=== PATIENT | female | born 1990 | race Two or more races ===

== ENCOUNTER 2021-02-27 14:21 | Emergency (ER) | payer OTHER, SELFPAY ==
[2021-02-27 14:49] VITALS: BP 191/95; PULSE 110; RESP 18; TEMP 36.2; O2SAT 100; BMI 28.3
[2021-02-27 17:00] LABS: MANUAL DIFF FLAG NO
[2021-02-27 17:01] LABS: Basophils Percent Auto 0.1 % (0-2); Eosinophils Absolute Auto 0.2 X10*3/uL (0.0-0.4); Hematocrit 32.3 % (37-47); Hemoglobin 9.7 g/dl (12.0-16.0); Imm Gran Abs Auto 0.03 X10*3/uL (0.00-0.03); Imm Gran Pct Auto 0.3 % (0.0-0.4); Lymphocytes Absolute Auto 1.4 X10*3/uL (1.2-4.9); Lymphocytes Percent Auto 13.8 % (20-40); Mean Corpuscular Hemoglobin 22.1 pg (27.0-33.0); Mean Corpuscular Volume 73.6 fL (80-98); Mean Platelet Volume 11.7 fL (9.4-12.3); Monocytes Absolute Auto 0.4 X10*3/uL (0.1-1.2); Neutrophils Absolute Auto 7.9 X10*3/uL (2.0-8.3); Neutrophils Percent Auto 79.8 % (45-73); Platelet Count 211 X10*3/uL (160-400); Red Blood Count 4.39 X10*6/uL (4.20-5.50); Red Cell Distribution Width 13.8 % (11.0-16.0); White Blood Count 9.9 X10*3/uL (4.8-10.8)
[2021-02-27] MEDS: 0.9 % Sodium Chloride 1,000 ML 999 ML IVCONT (17:03)
[2021-02-27] MEDS: Famotidine/PF 20 MG/2 ML VIAL IVPUSH (17:04)
[2021-02-27] MEDS: ondansetron HCL 4 MG/2 ML VIAL IVPUSH (17:04)
--- NOTE | 2021-02-27 17:10 | ED.NAVMDI ---
HPI - Nausea/Vomiting/Diarrhea General Chief complaint: Nausea/Vomiting/Diarrhea Stated complaint: SOB Time Seen by Provider: 02/27/21 16:33 Source: patient Mode of arrival: ambulatory Limitations: no limitations History of Present Illness HPI Narrative: 30-year-old female came in for evaluation of nausea and vomiting with upper abdominal pain. Patient's symptoms started since last night after she ate rice with pork ribs, patient had multiple nonbloody vomiting associated with upper/epigastric abdominal pain, pain is moderate 5/10 feels like acid burn sensation to the epigastric area, associated with nausea vomiting, and 1 time nonbloody watery diarrhea. No fever, no chills, no lower abdominal pain or tenderness. Related Data Home Medications Medication Instructions Recorded Confirmed albuterol sulfate 90 mcg/actuation 2 puff INHALATION Q6H PRN 12/12/20 12/12/20 aerosol inhaler medroxyprogesterone 150 mg/mL 150 mg IM [id number] 12/12/20 12/12/20 intramuscular suspension Previous Rx's Medication Instructions Recorded lisinopril 5 mg tablet 5 mg PO DAILY #30 tab 12/12/20 omeprazole magnesium [Prilosec OTC] 20 mg PO BID #30 tab 02/27/21 Allergies Allergy/AdvReac Type Severity Reaction Status Date / Time No Known Allergies Allergy Unknown Unverified 05/12/20 16:03 [No Known Allergies*] Review of Systems Review of Systems: All other systems are reviewed and are negative Constitutional: Reports as per HPI and Reports no additional constitutional complaints Eyes: Reports as per HPI and Reports no additional eye complaints Reports system reviewed and no additional complaints, except as documented Cardiovascular: Reports as per HPI and Reports no additional cardiovascular complaints Respiratory: Reports as per HPI and Reports no additional respiratory complaints Gastrointestinal: Reports as per HPI and Reports no additional gastrointestinal complaints Genitourinary: Reports no additional female genitourinary complaints Musculoskeletal: Reports no additional musculoskeletal complaints Skin/Breast: Reports system reviewed and no additional complaints, except as docu Psychiatric: Reports no additional psychiatric complaints Endocrine: Reports no additional endocrine complaints Hematologic/Lymphatic: Reports no additional hematologic/lymphatic complaints Allergic/Immunologic: Reports no additional allergic/immunologic complaints Reports system reviewed and no additional complaints, except as documented and Reports Abnormal speech present PMFSH Past Medical History Medical History Asthma COVID-19 virus infection Fibroid Preeclampsia Surgical History History of section History of tubal ligation Social History Social History Alcohol intake: never Advance Directives: No Advance Directives Information Provided: Yes Patient : No Physical Exam Vital Signs: Vital Signs: Last Vital Signs Temp 98.4 F 02/27/21 18:26 Pulse 93 02/27/21 18:26 Resp 18 02/27/21 18:26 BP 169/90 H 02/27/21 18: Pulse Ox 100 02/27/21 18:26 Body Mass Index 28.3 vital signs have been reviewed as appeared to be correct. Blood pressure elevated. Heart rate Elevated. Respiration rate normal. Temperature normal. Oxygen saturation normal. Appearance: Alert. Oriented X3. No acute distress. Head: Normal external exam. Normocephalic. Atraumatic. No Nolasco signs noted. No raccoon eyes noted Eyes: PERRLA. EOMI. Conjunctiva and sclera normal. Eyelids normal. ENT: TM's Normal. Pharynx normal. Uvula midline. Moist mucous membranes. No trismus noted. No drooling noted. No muffled voice noted. Neck: Normal inspection. Neck supple. FROM. No adenopathy. Thyroid Normal. No meningeal signs. No neck mass noted. CVS: Normal heart rate and rhythm. Heart sound normal. No murmurs noted. Pulses normal throughout. Respiratory: No respiratory distress. Painless inspiration. Breath sounds normal. No wheezes/rales/rhonchi noted. Chest nontender. No accessory muscle usage noted or decreased air movement noted. Abdomen: Soft, mild epigastric tenderness, no rebound, no guarding.. Bowel sounds normal in all 4 quadrants. No distention noted. No organomegaly noted. No visible injury noted. Back: No CVA tenderness. Full range of motion noted. Skin: Skin warm and dry. Normal skin color. Normal skin turgor. No rashes/lesions/lacerations noted. Extremities: No lower extremity edema. Extremities exhibit normal range of motion. Extremities nontender. Neuro: Oriented X 3. No motor deficit. No sensory deficit. Reflexes normal. Course Course Course Narrative: assessment and plan. patient emergency department received IV fluid/ Pepcid/Zofran /Maalox patient feels better, able to tolerate p.o. intake, repeat abdominal exam showed improvement of the epigastric tenderness, no rebound, no guarding. MDM - Nausea/Vomiting/Diarrhea Lab Data Attestation: I reviewed the patient's lab results. Result diagrams: 02/27/21 16:56 02/27/21 16:56 Labs: Lab Results 02/27/21 02/27/21 02/27/21 Range/Units 16:56 16:56 18:21 WBC 9.9 (4.8-10.8) X10*3/uL RBC 4.39 (4.20-5.50) X10*6/uL Hgb 9.7 L (12.0-16.0) g/dl Hct 32.3 L (37-47) % MCV 73.6 L (80-98) fL MCH 22.1 L (27.0-33.0) pg MCHC 30.0 L (31.0-35.0) g/dl RDW 13.8 (11.0-16.0) % Plt Count 211 (160-400) X10*3/uL MPV 11.7 (9.4-12.3) fL Immature Gran % (Auto) 0.3 (0.0-0.4) % Neut % (Auto) 79.8 H (45-73) % Lymph % (Auto) 13.8 L (20-40) % [place] % (Auto) 4.0 (2-11) % Eos % (Auto) 2.0 (0-4) % Baso % (Auto) 0.1 (0-2) % Lymph # (Auto) 1.4 (1.2-4.9) X10*3/uL [place] # (Auto) 0.4 (0.1-1.2) X10*3/uL Eos # (Auto) 0.2 (0.0-0.4) X10*3/uL Baso # (Auto) 0.0 (0.0-0.2) X10*3/uL Abs Immat Gran (auto) 0.03 (0.00-0.03) X10*3/uL Absolute Neuts (auto) 7.9 (2.0-8.3) X10*3/uL Absolute Nucleated RBC 0.000 (0.0-0.012) X10*3/uL Nucleated RBC % (auto) 0.0 (0.0-0.2) /100WBC Sodium 137 (135-145) mmol/L Potassium 3.9 (3.3-5.1) mmol/L Chloride 107 (96-108) mmol/L Carbon Dioxide 18 L (22-29) mmol/L Anion Gap 16 (12-20) BUN 8 L (9-16) mg/dL Creatinine 0.75 (0.5-1.4) mg/dL Estim Creat Clear Calc 88.0 Estimated GFR > 60 Random Glucose 95 (60-115) mg/dL Calcium 9.1 (8.4-10.2) mg/dL Total Bilirubin 0.8 (0.0-1.0) mg/dL Direct Bilirubin 0.3 (0.0-0.5) mg/dL AST 16 (5-31) U/L ALT 17 (0-31) U/L Alkaline Phosphatase 73 (39-117) U/L Total Protein 7.3 (6.5-8.0) g/dL Albumin 4.1 (3.5-5.0) g/dL Lipase 68 (8-78) U/L Urine Color YELLOW Urine Appearance CLEAR Urine pH 6.0 (5.0-8.0) Ur Specific [place] 1.025 (1.005-1.025) Urine Protein NEG (NEG-TRACE) MG/DL Urine Glucose (UA) NEG (NEG) MG/DL Urine Ketones 40 (NEG) MG/DL Urine Blood 3+ H (NEG) Urine Nitrite NEG (NEG) Ur Leukocyte Esterase NEG (NEG) Urine RBC 15-29 H (0) /HPF Urine WBC 0-2 (0-4) /HPF Ur Squamous Epith Cells TRACE /LPF Urine Bacteria NONE /LPF Urine Mucus 1+ /LPF Urine Test (NEGATIVE) 02/27/21 Range/Units 18:21 WBC (4.8-10.8) X10*3/uL RBC (4.20-5.50) X10*6/uL Hgb (12.0-16.0) g/dl Hct (37-47) % MCV (80-98) fL MCH (27.0-33.0) pg MCHC (31.0-35.0) g/dl RDW (11.0-16.0) % Plt Count (160-400) X10*3/uL MPV (9.4-12.3) fL Immature Gran % (Auto) (0.0-0.4) % Neut % (Auto) (45-73) % Lymph % (Auto) (20-40) % [place] % (Auto) (2-11) % Eos % (Auto) (0-4) % Baso % (Auto) (0-2) % Lymph # (Auto) (1.2-4.9) X10*3/uL [place] # (Auto) (0.1-1.2) X10*3/uL Eos # (Auto) (0.0-0.4) X10*3/uL Baso # (Auto) (0.0-0.2) X10*3/uL Abs Immat Gran (auto) (0.00-0.03) X10*3/uL Absolute Neuts (auto) (2.0-8.3) X10*3/uL Absolute Nucleated RBC (0.0-0.012) X10*3/uL Nucleated RBC % (auto) (0.0-0.2) /100WBC Sodium (135-145) mmol/L Potassium (3.3-5.1) mmol/L Chloride (96-108) mmol/L Carbon Dioxide (22-29) mmol/L Anion Gap (12-20) BUN (9-16) mg/dL Creatinine (0.5-1.4) mg/dL Estim Creat Clear Calc Estimated GFR Random Glucose (60-115) mg/dL Calcium (8.4-10.2) mg/dL Total Bilirubin (0.0-1.0) mg/dL Direct Bilirubin (0.0-0.5) mg/dL AST (5-31) U/L ALT (0-31) U/L Alkaline Phosphatase (39-117) U/L Total Protein (6.5-8.0) g/dL Albumin (3.5-5.0) g/dL Lipase (8-78) U/L Urine Color Urine Appearance Urine pH (5.0-8.0) Ur Specific [place] (1.005-1.025) Urine Protein (NEG-TRACE) MG/DL Urine Glucose (UA) (NEG) MG/DL Urine Ketones (NEG) MG/DL Urine Blood (NEG) Urine Nitrite (NEG) Ur Leukocyte Esterase (NEG) Urine RBC (0) /HPF Urine WBC (0-4) /HPF Ur Squamous Epith Cells /LPF Urine Bacteria /LPF Urine Mucus /LPF Urine Test NEGATIVE (NEGATIVE) Discharge Plan Discharge Clinical Impression: Gastritis Qualifiers: Gastritis type: alcoholic Chronicity: acute Gastritis bleeding: without bleeding Qualified Code(s): K29.20 - Alcoholic gastritis without bleeding Patient Disposition: Home, Self-Care Instructions: Gastritis (ED) Prescriptions: New omeprazole magnesium [Prilosec OTC] 20 mg tablet,delayed release (DR/EC) 20 mg PO BID Qty: 30 RF: 0 No Action medroxyprogesterone [Depo-Provera] 150 mg/mL suspension 150 mg IM [id number] RF: 0 albuterol sulfate [ProAir HFA] 90 mcg/actuation HFA aerosol inhaler 2 puff inhalation Q6H PRNRF: 0 lisinopril 5 mg tablet 5 mg PO DAILY Qty: 30 RF: 3 Referrals: Po,Abigail Calvo MD [Primary Care Provider] - 2 days
[2021-02-27 17:22] LABS: Alanine Aminotransferase 17 U/L (0-31); Albumin Level 4.1 g/dL (3.5-5.0); Alkaline Phosphatase 73 U/L (39-117); Anion Gap 16 (12-20); Aspartate Amino Transferase 16 U/L (5-31); Bilirubin Direct 0.3 mg/dL (0.0-0.5); Bilirubin Total 0.8 mg/dL (0.0-1.0); Blood Urea Nitrogen 8 mg/dL (9-16); Calcium 9.1 mg/dL (8.4-10.2); Carbon Dioxide 18 mmol/L (22-29); Chloride 107 mmol/L (96-108); Estimated Glomerular Filt Rate > 60; Glucose Random 95 mg/dL (60-115); Lipase 68 U/L (8-78); Potassium 3.9 mmol/L (3.3-5.1); Sodium 137 mmol/L (135-145); Total Protein 7.3 g/dL (6.5-8.0)
[2021-02-27 18:26] VITALS: BP 169/90; PULSE 93; RESP 18; TEMP 36.9; O2SAT 100
[2021-02-27 18:33] LABS: Glucose Urine UA NEG (NEG); Leukocyte Esterase Urine NEG (NEG); Nitrite Urine NEG (NEG); Specific Gravity - Urine 1.025 (1.005-1.025); Urine Blood 3+ (NEG); Urine Ketones 40 MG/DL (NEG); Urine Protein NEG (NEG-TRACE)
[2021-02-27 18:35] LABS: UPreg QC Valid YES; Urine Pregnancy NEGATIVE (NEGATIVE)
[2021-02-27 18:36] LABS: Appearance Urine CLEAR; Color Urine YELLOW
[2021-02-27 18:43] LABS: Mucus Urine 1+ /LPF; Squamous Epithelial Cell Urine TRACE /LPF; WBC Urine 0-2 /HPF (0-4)
== END 2021-02-27 19:35 | disposition home or self-care (01) ==
PROVIDERS: Emergency Provider Emergency Medicine; PCP Internal Medicine
DX: K29.00 Acute gastritis without bleeding (principal); I10 Essential (primary) hypertension; E66.3 Overweight; J45.909 Unspecified asthma, uncomplicated; Z79.899 Other long term (current) drug therapy
CPT/HCPCS: 36415; 80048; 80076; 81001; 81025; 83690; 85025; 96361; 96374; 96375; 99283; 99284; J2405

== ENCOUNTER → 2021-11-14 07:41 | Outpatient (REF) | payer OTHER, SELFPAY ==
[2021-11-14 08:48] LABS: Hematocrit 40.6 % (37.0-47.0); Hemoglobin 13.1 g/dl (12.0-16.0); Mean Corpuscular HGB Conc 32.3 g/dl (31.0-35.0); Mean Corpuscular Hemoglobin 26.8 pg (27.0-33.0); Mean Corpuscular Volume 83.2 fL (80.0-98.0); Mean Platelet Volume 12.2 fL (9.4-12.3); Platelet Count 230 X10*3/uL (160-400); Red Blood Count 4.88 X10*6/uL (4.20-5.50); Red Cell Distribution Width 12.6 % (11.0-16.0); White Blood Count 6.3 X10*3/uL (4.8-10.8)
[2021-11-14 08:49] LABS: Immature Retic Fraction 5.6 % (3.0-15.9); Retic HGB Equivalent 32.3 pg (30.0-35.0); Reticulocyte Percent 1.3 % (0.5-1.8); Reticulocytes Absolute 0.064 X10*6/uL (0.026-0.095)
[2021-11-14 09:30] LABS: Alanine Aminotransferase 24 U/L (0-31); Albumin Level 4.2 g/dL (3.5-5.0); Alkaline Phosphatase 77 U/L (39-117); Anion Gap 11 (12-20); Aspartate Amino Transferase 15 U/L (5-31); Bilirubin Total 0.7 mg/dL (0.0-1.0); Blood Urea Nitrogen 8 mg/dL (9-16); Calcium 9.4 mg/dL (8.4-10.2); Carbon Dioxide 26 mmol/L (22-29); Chloride 104 mmol/L (96-108); Estimated Glomerular Filt Rate > 60; Glucose Random 88 mg/dL (60-115); Iron 67 mcg/dL (30-160); Potassium 3.9 mmol/L (3.3-5.1); Sodium 137 mmol/L (135-145); Total Protein 7.6 g/dL (6.5-8.0)
--- NOTE | 2021-11-14 09:34 | ECG_ITS ---
Test Reason : I10 Blood Pressure : / mmHG Vent. Rate : 077 BPM Atrial Rate : 077 BPM P-R Int : 136 ms QRS Dur : 078 ms QT Int : 348 ms P-R-T Axes : 025 006 022 degrees QTc Int : 393 ms Normal sinus rhythm with sinus arrhythmia Minimal voltage criteria for LVH, may be normal variant ( R in aVL ) Borderline ECG When compared to the previous EKG of No significant changes seen Referred By: Raulito Goins Electronically Signed By:Ildefonso Quintero
[2021-11-14 09:54] LABS: Percent Iron Saturation 17 % (15-50); Total Iron Binding Capacity 386 mcg/dL (228-428); Unsaturated Iron Binding 319 ug/dL
[2021-11-14 09:57] LABS: Folate 14.9 ng/mL (> or = 4.0); Vitamin B12 555 pg/mL (200-900)
[2021-11-14 09:58] LABS: Ferritin 30 ng/mL (10-122); Free T4 (Free Thyroxine) 1.15 ng/dL (0.71-1.85); Thyroid Stimulating Hormone 0.82 uIU/mL (0.32-4.0)
[2021-11-16 14:26] LABS: Vitamin D 25-OH Total 17.2 ng/mL (>30)
== END ==
LOC: HO.CARD 07:41
PROVIDERS: PCP Internal Medicine; Visit Provider Nurse Practitioner Family
DX: Z00.00 Encounter for general adult medical examination without abnormal findings (principal); I10 Essential (primary) hypertension; D64.9 Anemia, unspecified
CPT/HCPCS: 36415; 80053; 82306; 82607; 82728; 82746; 83540; 84439; 84443; 85027; 85045; 93005

== ENCOUNTER 2024-01-23 09:12 | Outpatient (AMB) | payer OTHER, SELFPAY ==
--- NOTE | 2024-01-23 09:12 | MHC.PC.OV ---
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 Allergies No Known Allergies [No Known Allergies*] Allergy (Unknown, Verified 01/23/24 09:13) Medication List - Last Reconciled 01/23/24 by Abigail Nicholson MD albuterol sulfate 90 mcg/actuation (Ventolin HFA) 2 puffs inhalation Q6H PRN lisinopril 10 mg PO DAILY Tobacco use date assessed: 01/23/24 Dental Screening Dental Screen Date: 01/23/24 Did you have a dental visit in the last 12 months?: Yes Did you have a dental problem in the last 6 months where you did not have access to dental care?: No Was dental information given to patient?: Patient has dentist HPI Annual HPI Details 33-year-old overweight female with history of hypertension asthma coming in for physical exam last seen 1 year ago. On lisinopril 10 mg once a day patient has been checking the blood pressure at home and has been hi also. As for the asthma uses the albuterol twice a day and presently does not have any controller inhaler. [facility] Medical History (Updated 01/23/24 @ 09:19 by Abigail Nicholson MD) Physical exam (~07/25/21) Fungal dermatitis Intermittent asthma Fibroid COVID-19 virus infection Preeclampsia Asthma Surgical History (Updated 01/23/24 @ 09:28 by Abigail Nicholson MD) H/O: hysterectomy History of tubal ligation History of section Family History Mother No problems noted. Father No problems noted. Social History Housing: Apartment Alcohol intake: never Patient Tobacco Use Status: Never used Tobacco e-Cigarette/Vaping Use: Never Used Second Hand Smoke Exposure: No service: No Current occupational status: employed Current occupational exposures/hazards: No Cognitive needs: No Hearing needs: No Vision needs: Yes (glasses) Questionnaire PHQ-9 Over the last 2 weeks, how often have you been bothered by any of the following problems? 1. Little interest or pleasure in doing things: not at all 2. Feeling down, depressed, or hopeless: not at all 3. Trouble falling or staying asleep, or sleeping too much: not at all 4. Feeling tired or having little energy: not at all 5. Poor appetite or overeating: not at all 6. Feeling bad about yourself - or that you are a failure or have let yourself or your family down: not at all 7. Trouble concentrating on things, such as reading the newspaper or watching television: not at all 8. Moving or speaking so slowly that other people could have noticed. Or the opposite - being so fidgety or restless that you have been moving around a lot more than usual: not at all 9. Thoughts that you would be better off or of hurting yourself in some way: not at all Total score: 0 Depression Screening Interpretation: Negative Depression Screening Done: Yes 01381 - PHQ-9 Billing: Yes Source: Developed by Drs. En Noe, Hali Smith, Kirk Figueroa and colleagues, with an educational fabrice from [employer]. Thrive Questionnaire Date Thrive assessed: 01/23/24 I am a: Patient What is your living situation today?: I have a steady place to live Within the past 12 months, did the food you bought not last and you didn't have the money to get more?: Never true Within the past 12 months, did you worry whether your food would run out before you got money to buy more?: Never true Currently or been in a relationship where the following occur: no concerns reported THRIVE Score: 0 AUDIT C Alcohol Use Questionnaire (AUDIT-C) 1. How often do you have a drink containing alcohol?: Never 3. How often do you have six or more drinks on one occasion?: Never Total Score: 0 REKHA-7 AMB Questionnaire REKHA-7 Date REKHA - 7 assessed: 01/23/24 Feeling nervous, anxious, or on edge: 0 = Not at all Not being able to stop or control worryin = Not at all Worrying too much about different things: 0 = Not at all Trouble relaxin = Not at all Being so restless that it is hard to sit still: 0 = Not at all Becoming easily annoyed or irritable: 0 = Not at all Feeling afraid as if something awful might happen: 0 = Not at all Total REKHA-7 score (0-4 normal; 5-9 mild; 10-14 moderate; 15-21 severe): 0 Source: Developed by Drs. En Noe, Hali Smith, Kirk Figueroa and colleagues, with an educational fabrice from [employer]. Review of Systems Const Denies poor appetite and Denies weakness Eyes Denies no additional complaints ENT Reports Normal hearing present, Denies dizziness, Denies nasal congestion, Denies tinnitus and Denies sore throat Card Denies chest pain, Denies syncope, Denies rapid heart rate and Denies dyspnea Resp Denies cough and Denies dyspnea GI Denies change in stool character, Reports constipation, Denies diarrhea, Denies nausea and Denies vomiting Denies urinary frequency, Denies difficulty voiding and Denies dysuria Neuro Reports Normal hearing present, Denies confusion, Denies dizziness, Denies syncope and Denies weakness Psych Denies confusion Physical exam (Primary Care) Vital Signs: Last Vital Signs Pulse 93 01/23/24 09:13 BP 142/90 H 01/23/24 09:23 Pulse Ox 100 01/23/24 09:13 Oxygen Delivery Method Room Air 01/23/24 09:13 BMI result Body Mass Index 28.7 Tobacco/Smoking Status: Tobacco use Status Tobacco use date assessed 01/23/24 01/23/24 09:18 Patient Tobacco Use Status Never used Tobacco 01/23/24 09:18 e-Cigarette/Vaping Use Never Used 01/23/24 09:18 PHQ-9: PHQ-9 Score PHQ-9: Total score 0 01/23/24 09:39 Depression Screening Interpretation: Negative Thrive Assessment: Date of Thrive Assessment Date Thrive assessed 01/23/24 01/23/24 09:18 Currently or been in a relationship where the following occur: no concerns reported Const General: No confusion Orientation/consciousness: No confusion HENMT Head: Yes normocephalic Ears: external ears normal and TM's normal bilaterally Face and sinus: Yes normal facial exam Mouth: moist mucous membranes Throat: Yes tonsils normal Eyes Conjunctivae: conjunctivae normal Pupils: Equal, round and reactive pupils present and Pupil accommodation reflex normal Direct Ophthalmoscopy: normal light reflex Neck Neck: No lymphadenopathy Thyroid: Thyroid normal Chest Chest palpation & inspection: normal inspection of the chest Resp Effort & Inspection: normal respiratory effort and no audible wheezes Auscultation: clear to auscultation bilaterally, no crackles, no wheezes and lung sounds not diminished Cardio Rate: regular rate Rhythm: regular rhythm Peripheral pulses: radial pulses present and dorsalis pedis present GI Palpation (GI): no masses Auscultation: normal bowel sounds and normoactive bowel sounds Rectal Exam - Female: deferred Skin General skin exam: no rashes or lesions noted Rashes: no rashes Neuro General: No confusion Cranial nerves: Yes Equal, round and reactive pupils present and Yes Normal hearing present Cognition (Neuro): normal cognition Gait exam (Neuro): Normal gait present Motor exam (neuro): 5/5 motor strength present throughout Deep tendon reflexes (DTR's): Right brachioradialis reflex intensity grade: 2+, Left brachioradialis reflex intensity grade: 2+, Right patellar reflex intensity grade: 2+ and Left patellar reflex intensity grade: 2+ Extrem General: No edema Immunizations Boostrix Tdap 2.5 Lf unit-8 mcg-5 Lf/0.5 mL intramuscular syringe Performing Provider: Abigail Nicholson MD [facility] Administered by: GARY Martinez on 01/23/24 10:04 Dose Route Admin Location Dispensed Lot Number Expiration Date NDC Director Of Safety And Security 0.5 mL IM Left Deltoid 0.5 mL [id number] 04/02/26 00531-620-67 [employer] VIS Given Date VIS Provided VIS Publication Date 01/23/24 Single Vaccine 21 Eligibility Eligibility Date Funding Source Not [facility] Eligible 01/23/24 Private Assessment and Plan Assessment & Plan (1) Annual physical exam: Code(s): Z00.00 - Encounter for general adult medical examination without abnormal findings (2) Overweight (BMI 25.0-29.9): Code(s): E66.3 - Overweight Plan: Diet and exercise (3) Hypertension: Code(s): I10 - Essential (primary) hypertension Plan: Continue with blood pressure medication. Decrease salt intake and exercise patient is presently on lisinopril 10 mg once a day and with the blood pressure high advised increase in the blood pressure medication and advised get the blood work also. (4) Asthma: Code(s): J45.909 - Unspecified asthma, uncomplicated Plan: Patient is uncontrolled and has mild intermittent asthma advised to get a controller inhaler and to rinse the mouth every time its use. Orders: Orders Complete Blood Count Auto Diff Today I10 - Essential (primary) hypertension Comprehensive Met. Panel Today I10 - Essential (primary) hypertension Free T4 (Free Thyroxine) Today I10 - Essential (primary) hypertension Lipid Panel Today E78.00 - Pure hypercholesterolemia, unspecified, I10 - Essential (primary) hypertension Thyroid Stimulating Hormone Today I10 - Essential (primary) hypertension Vitamin B12 and Folate Today I10 - Essential (primary) hypertension Vitamin D 25-OH Total Today I10 - Essential (primary) hypertension US renal BI Today I10 - Essential (primary) hypertension US renal doppler Today I10 - Essential (primary) hypertension TDaP Immunization Today Z23 - Encounter for immunization Medications: New beclomethasone dipropionate 80 mcg/actuation (Qvar RediHaler) administer with spacer 1 inh inhalation Q12H 10.6 grams 3RF J45.909 - Unspecified asthma, uncomplicated Boostrix Tdap (diphth,pertus(acell),tetanus) 0.5 mL IM ONCE 0.5 mL 0RF NS Z23 - Encounter for immunization Changed From lisinopril 10 mg PO DAILY 90 tabs 1RF I10 - Essential (primary) hypertension To lisinopril 20 mg PO DAILY 30 tabs 4RF I10 - Essential (primary) hypertension Refilled lisinopril 10 mg PO DAILY 90 tabs 1RF J45.909 - Unspecified asthma, uncomplicated Coding Level of Care Code Est Pt Level 3 (69107) Est Pt Prev Care 18-39y(41545) Diagnoses Annual physical exam Z00.00 Overweight (BMI 25.0-29.9) E66.3 Hypertension I10 Asthma J45.909
[2024-01-23 09:13] VITALS: BP 128/90; PULSE 93; O2SAT 100; BMI 28.7
[2024-01-23 09:23] VITALS: BP 142/90
== END 2024-01-23 09:51 | disposition home or self-care (01) ==
LOC: HO.HMGH 09:12
PROVIDERS: PCP Internal Medicine; Visit Provider Internal Medicine
DX: Z00.00 Encounter for general adult medical examination without abnormal findings (principal); E66.3 Overweight; I10 Essential (primary) hypertension; Z23 Encounter for immunization; J45.909 Unspecified asthma, uncomplicated
CPT/HCPCS: 90471; 90715; 99213; 99395

== ENCOUNTER 2024-02-06 07:44 | Outpatient (REF) | payer OTHER, SELFPAY ==
--- NOTE | ~2024-02-06 | US_ITS ---
EXAMINATION: ULTRASOUND OF KIDNEYS WITH RENAL ARTERY DOPPLER CLINICAL INFORMATION: Hypertension. COMPARISON: None available. TECHNIQUE: Ultrasound of the kidneys was performed along with color flow Doppler imaging and velocity measurements in the proximal mid and distal renal arteries. Aortic velocities were measured and renal/aortic ratios were calculated. Segmental renal indices were calculated. FINDINGS: The kidneys appeared normal with the right kidney measuring 10.7 x 3.6 x 5.0 cm and the left kidney measuring 10.3 x 4.7 x 4.0 cm. No renal masses, renal stones or hydronephrosis is seen. Renal cortical thickness appears normal. Velocity measurements in the proximal mid and distal renal arteries are normal. The maximal measurement on the right is proximal at 159 cm/s and on the left in the mid renal artery at 130 cm/s. Velocity in the aorta is normal at 77 cm/s and, therefore, the renal aortic ratios are normal. Segmental resistive indices were normal bilaterally measuring 0.5-0.6. US/US renal doppler IMPRESSION: 1. Normal-appearing kidneys. 2. No evidence to suggest renal artery stenosis.
--- NOTE | ~2024-02-06 | US_ITS ---
EXAMINATION: ULTRASOUND OF KIDNEYS WITH RENAL ARTERY DOPPLER CLINICAL INFORMATION: Hypertension. COMPARISON: None available. TECHNIQUE: Ultrasound of the kidneys was performed along with color flow Doppler imaging and velocity measurements in the proximal mid and distal renal arteries. Aortic velocities were measured and renal/aortic ratios were calculated. Segmental renal indices were calculated. FINDINGS: The kidneys appeared normal with the right kidney measuring 10.7 x 3.6 x 5.0 cm and the left kidney measuring 10.3 x 4.7 x 4.0 cm. No renal masses, renal stones or hydronephrosis is seen. Renal cortical thickness appears normal. Velocity measurements in the proximal mid and distal renal arteries are normal. The maximal measurement on the right is proximal at 159 cm/s and on the left in the mid renal artery at 130 cm/s. Velocity in the aorta is normal at 77 cm/s and, therefore, the renal aortic ratios are normal. Segmental resistive indices were normal bilaterally measuring 0.5-0.6. US/US renal BI IMPRESSION: 1. Normal-appearing kidneys. 2. No evidence to suggest renal artery stenosis.
== END 2024-02-06 07:45 | disposition home or self-care (01) ==
LOC: HO.US 07:44
PROVIDERS: PCP Internal Medicine; Visit Provider Internal Medicine
DX: I10 Essential (primary) hypertension (principal)
CPT/HCPCS: 76775; 93975

== ENCOUNTER 2024-04-29 08:01 | Emergency (ER) | payer OTHER, SELFPAY ==
[2024-04-29 08:06] VITALS: BP 152/87; PULSE 81; RESP 14; TEMP 36.8; O2SAT 100; BMI 28.3
[2024-04-29 08:11] VITALS: BP 152/87; PULSE 81; RESP 14; TEMP 36.8; O2SAT 100
--- NOTE | 2024-04-29 08:36 | ED.GENADULT ---
HPI - General Adult General Chief complaint: General Medical Stated complaint: neck pain Time Seen by Provider: 04/29/24 08:08 Source: patient Mode of arrival: ambulatory Limitations: no limitations History of Present Illness ED Provider: AMADOR SHOEMAKER narrative: 34 yo female with hx of anemia, HTN, asthma here with c/o waking up 7 days ago and pain on R side of neck hurts to turn to the left. No numbness, weakness, mass or fevers. No known trauma. She has no hx of neck pain. 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 not on thinners, no IVDA, no rash, no sore throat MD complaint: neck apin Onset (ago): week(s) (1) Location: neck Radiation: non-radiation Severity: moderate Quality: aching and sharp Pain Consistency: intermittent Relieving factors: immobilization Exacerbating factors: movement Associated symptoms: denies other symptoms Treatments prior to arrival: other (tylenol) Related Data Previous Rx's ?Medication ?Instructions ?Recorded albuterol sulfate 90 mcg/actuation 2 puff inhalation Q6H PRN 01/18/23 aerosol inhaler (Ventolin HFA) shortness of breath or wheezing #8.5 grams beclomethasone dipropionate 80 1 inh inhalation Q12H #10.6 grams 01/23/24 mcg/actuation HFA breath activated aerosol (Qvar RediHaler) lisinopril 20 mg tablet 20 mg PO DAILY #90 tabs 04/21/24 cyclobenzaprine 10 mg tablet 10 mg PO TID PRN muscle spasm #20 04/29/24 tabs ibuprofen 600 mg tablet 600 mg PO Q6H PRN pain #30 tabs 04/29/24 lidocaine 5 % topical patch 1 patch topical DAILY #30 ea 04/29/24 Allergies Allergy/AdvReac Type Severity Reaction Status Date / Time No Known Allergies Allergy Unknown Verified 04/29/24 08:07 [No Known Allergies*] Review of Systems Review of Systems: Constitutional : No Fever, No Chills ENT/Mouth : No Ear Pain, No Hoarseness, No sore throat Eyes: No Eye Pain, No Swelling, No Redness, No Foreign Body Cardiovascular : No Chest Pain, No SOB Respiratory : No Cough, No Dyspnea Gastrointestinal : No Nausea, No Vomiting, No Diarrhea, No abdominal Pain Genitourinary : No Dysuria, No Hematuria Musculoskeletal : no joint pain, No Myalgias, No Joint Swelling, pos neck pain Skin : No Skin lacerations, No rash Neuro : No Weakness, No Numbness, No Loss of Consciousness, No Dizziness, No Headache All other systems reviewed and are negative [facility] Past Medical History Attestation statement: The following information was validated with the patient. Source: old records reviewed Medical History Physical exam (~07/25/21) Fungal dermatitis Intermittent asthma Fibroid COVID-19 virus infection Preeclampsia Asthma Surgical History (Updated 01/23/24 @ 09:28 by Abigail Nicholson MD) H/O: hysterectomy History of tubal ligation History of section Family History Family History Mother No problems noted. Father No problems noted. Social History Social History Housing: Apartment Alcohol intake: never Patient Tobacco Use Status: Never used Tobacco e-Cigarette/Vaping Use: Never Used Second Hand Smoke Exposure: No Advance Directives: No Advance Directives Information Provided: No Do you have a plan to hurt others: No Plan service: No Current occupational status: employed Current occupational exposures/hazards: No Cognitive needs: No Hearing needs: No Vision needs: Yes (glasses) Physical Exam ED Vital Signs: Vital Signs - 24 hr 04/29/24 08:06 04/29/24 08:11 Temperature 98.3 F 98.3 F Pulse Rate 81 81 Respiratory Rate 14 14 Blood Pressure 152/87 H 152/87 H Pulse Oximetry 100 100 Oxygen Delivery Method Room Air Room Air BMI result Body Mass Index 28.3 Appearance: Alert. Oriented X3. No acute distress. Eyes: Pupils equal, round and reactive to light. ENT: Pharynx normal. Neck: Normal inspection. R side of neck tight band felt reproduces pain - worse with turning to right or ROM testing normal R ear exam, normal oropharynx, no rash or mass, lymphadenopathy felt, no soft tissue mass felt, no midline ttp CVS: Pulses normal. Respiratory: No respiratory distress. Abdomen: atraumatic Skin: Skin warm and dry. Normal skin color. Extremities: No lower extremity edema. Neuro: Oriented X 3. No motor deficit. No sensory deficit. Medical Decision Making Medical Decision Making MDM Narrative: 34 yo female with hx of anemia, HTN, asthma here with c/o R sided neck pain worse with movements no mass, no rash, normal neuro exam UE bilateral intact, no mass seen or felt on neck has tight posterior lateral ropy band felt on posterior neck and pain with ROM suspect spasm. No midline ttp doubt fracture, mass, infection, no thinners, no IVDA Differential Diagnosis Differential Diagnoses: The differential diagnosis associated with the presentation includes spasm, strain, torticollis External Record Review External record reviewed: Outpatient record Prescription Management I considered prescription management with: Pain Medication and Other Discharge Plan Discharge Clinical Impression: Muscle spasms of neck Patient Disposition: Home, Self-Care Instructions: Muscle Spasm (ED) Additional Instructions: return for worsening pain, numbness, weakness, worsening symptoms or any other concerns alternate tylenol and motrin for pain use heat for relief Prescriptions: New cyclobenzaprine 10 mg tablet 10 mg PO TID PRN (Reason: muscle spasm) Qty: 20 0RF lidocaine 5 % adhesive patch,medicated 1 patch topical DAILY Qty: 30 0RF Rx Instructions: leave on most painful area for up to 12 hrs ibuprofen 600 mg tablet 600 mg PO Q6H PRN (Reason: pain) Qty: 30 0RF No Action albuterol sulfate [Ventolin HFA] 90 mcg/actuation HFA aerosol inhaler 2 puff inhalation Q6H PRN (Reason: shortness of breath or wheezing) Qty: 8.5 0RF lisinopril 20 mg tablet 20 mg PO DAILY Qty: 90 1RF Qvar RediHaler 80 mcg/actuation HFA aerosol breath activated 1 inh inhalation Q12H Qty: 10.6 3RF Rx Instructions: administer with spacer Stand Alone Forms: Work/School Release Print Language: Czech
[2024-04-29] MEDS: Lidocaine 4 % Patch ADH..PATCH 1 PATCH TRANSDERMA (08:48)
[2024-04-29 08:51] VITALS: BP 152/87; PULSE 81; RESP 14; TEMP 36.8; O2SAT 100
== END 2024-04-29 08:51 | disposition home or self-care (01) ==
PROVIDERS: Emergency Provider Emergency Medicine; PCP Internal Medicine
DX: M62.830 Muscle spasm of back (principal); M54.2 Cervicalgia
CPT/HCPCS: 99283; 99284

== ENCOUNTER 2024-05-15 08:13 | Outpatient (REF) | payer OTHER, SELFPAY ==
[2024-05-15 08:20] LABS: MANUAL DIFF FLAG NO
[2024-05-15 08:47] LABS: Basophils Percent Auto 0.8 % (0-2); Eosinophils Absolute Auto 0.1 X10*3/uL (0.0-0.4); Eosinophils Percent Auto 1.4 % (0-4); Hematocrit 37.3 % (37.0-47.0); Hemoglobin 12.5 g/dl (12.0-16.0); Imm Gran Abs Auto 0.02 X10*3/uL (0.00-0.03); Imm Gran Pct Auto 0.4 % (0.0-0.4); Lymphocytes Absolute Auto 1.4 X10*3/uL (1.2-4.9); Lymphocytes Percent Auto 26.9 % (20-40); Mean Corpuscular HGB Conc 33.5 g/dl (31.0-35.0); Mean Corpuscular Hemoglobin 27.7 pg (27.0-33.0); Mean Corpuscular Volume 82.7 fL (80.0-98.0); Mean Platelet Volume 11.4 fL (9.4-12.3); Monocytes Absolute Auto 0.4 X10*3/uL (0.1-1.2); Monocytes Percent Auto 7.2 % (2-11); Neutrophils Absolute Auto 3.3 x10*3/uL (2.0-8.3); Neutrophils Percent Auto 63.3 % (45-73); Platelet Count 227 X10*3/uL (160-400); Red Blood Count 4.51 X10*6/uL (4.20-5.50); Red Cell Distribution Width 11.8 % (11.0-16.0); White Blood Count 5.2 X10*3/uL (4.8-10.8)
[2024-05-15 09:29] LABS: Alanine Aminotransferase 21 U/L (0-31); Albumin Level 4.2 g/dL (3.5-5.0); Alkaline Phosphatase 54 U/L (39-117); Anion Gap 9 (12-20); Aspartate Amino Transferase 13 U/L (5-31); Bilirubin Total 0.5 mg/dL (0.0-1.0); Blood Urea Nitrogen 10 mg/dL (9-16); Carbon Dioxide 27 mmol/L (22-29); Chloride 108 mmol/L (96-108); Cholesterol 149 mg/dL (<200); Estimated Glomerular Filt Rate > 60; Glucose Random 92 mg/dL (60-115); HDL Cholesterol 45 mg/dL (>40); LDL Cholesterol Calculated 97 mg/dL (<100); Potassium 3.9 mmol/L (3.3-5.1); Sodium 140 mmol/L (135-145); Total Protein 7.5 g/dL (6.5-8.0); Triglycerides 37 mg/dL (<150)
[2024-05-15 09:49] LABS: Thyroid Stimulating Hormone 0.64 uIU/mL (0.32-4.0); Vitamin D 25-OH Total 22.1 ng/mL (>30)
[2024-05-15 10:00] LABS: Vitamin B12 909 pg/mL (200-900)
== END 2024-05-15 08:14 | disposition home or self-care (01) ==
LOC: HO.LAB 08:13
PROVIDERS: PCP Internal Medicine; Visit Provider Internal Medicine
DX: I10 Essential (primary) hypertension (principal); E78.00 Pure hypercholesterolemia, unspecified
CPT/HCPCS: 36415; 80053; 80061; 82306; 82607; 82746; 84439; 84443; 85025

== ENCOUNTER 2024-09-21 08:07 | Outpatient (AMB) | payer OTHER, SELFPAY ==
[2024-09-21 08:28] VITALS: BP 126/82; PULSE 84; O2SAT 99; BMI 28.6
--- NOTE | 2024-09-21 08:28 | MHC.PC.OV ---
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 Accompanied by: Self / Same As Patient Allergies No Known Allergies [No Known Allergies*] Allergy (Unknown, Verified 09/21/24 08:29) Medication List - Last Reconciled 09/21/24 by Shannan Savage PA-C albuterol sulfate 90 mcg/actuation (Ventolin HFA) 2 puffs inhalation Q6H PRN beclomethasone dipropionate 80 mcg/actuation (Qvar RediHaler) 1 inh inhalation Q12H cyclobenzaprine 10 mg PO TID PRN ibuprofen 600 mg PO Q6H PRN lidocaine 5% 1 patch topical DAILY lisinopril 20 mg PO DAILY Tobacco use date assessed: 09/21/24 Dental Screening Dental Screen Date: 09/21/24 Did you have a dental visit in the last 12 months?: Yes Did you have a dental problem in the last 6 months where you did not have access to dental care?: No Was dental information given to patient?: Patient has dentist HPI [facility] 09/16 chest pain/SOB HPI Details 34-year-old female with past medical history of hypertension, asthma last seen by Dr. Nicholson 12/2023 coming in for hospital discharge follow up. Patient tells us today for the last several days she has been having chest tightness and shortness of breath. She was seen in [facility] ED and had negative cardiac workup. Her symptoms have not changed or worsened since discharge from the ED. she also mentions having nighttime awakenings shortness of breath. At her last visit with Dr. Nicholson she was prescribed a inhaled corticosteroid for better management of her asthma which she states she has not been taking and never received. She denies any chest pain and just feels tightness in the chest as well as the shortness of breath and difficulty taking a deep breath. Denies any back pain, nausea, vomiting, arm numbness or tingling or dizziness. [facility] Medical History Physical exam (~07/25/21) Fungal dermatitis Intermittent asthma Fibroid COVID-19 virus infection Preeclampsia Asthma Surgical History H/O: hysterectomy History of tubal ligation History of section Family History Mother No problems noted. Father No problems noted. Social History Housing: Apartment Alcohol intake: never Patient Tobacco Use Status: Never used Tobacco e-Cigarette/Vaping Use: Never Used Second Hand Smoke Exposure: No service: No Current occupational status: employed Current occupational exposures/hazards: No Cognitive needs: No Hearing needs: No Vision needs: Yes (glasses) Questionnaire PHQ-9 Over the last 2 weeks, how often have you been bothered by any of the following problems? 1. Little interest or pleasure in doing things: not at all 2. Feeling down, depressed, or hopeless: not at all 3. Trouble falling or staying asleep, or sleeping too much: not at all 4. Feeling tired or having little energy: not at all 5. Poor appetite or overeating: not at all 6. Feeling bad about yourself - or that you are a failure or have let yourself or your family down: not at all 7. Trouble concentrating on things, such as reading the newspaper or watching television: not at all 8. Moving or speaking so slowly that other people could have noticed. Or the opposite - being so fidgety or restless that you have been moving around a lot more than usual: not at all 9. Thoughts that you would be better off or of hurting yourself in some way: not at all Total score: 0 Depression Screening Interpretation: Negative Depression Screening Done: Yes Source: Developed by Drs. En Noe, Hali Smith, Kirk Figueroa and colleagues, with an educational fabrice from [employer] Thrive Questionnaire Date Thrive assessed: 09/21/24 I am a: Patient What is your living situation today?: I have a steady place to live Within the past 12 months, did the food you bought not last and you didn't have the money to get more?: Never true Within the past 12 months, did you worry whether your food would run out before you got money to buy more?: Never true Do you have trouble paying for medicines?: No Do you have trouble getting transportation to medical appointments?: No Do you have trouble paying your heating and electricity bill?: No Do you have trouble taking care of your child, family member or friend?: No Do you have trouble with day-to-day activities such as bathing, preparing meals, shopping, managing finances, etc.?: No Are you currently unemployed and looking for a job?: No Are you interested in more education?: No Please select the resources that you would like help with: None Currently or been in a relationship where the following occur: No concerns reported THRIVE Score: 0 AUDIT C Alcohol Use Questionnaire (AUDIT-C) 1. How often do you have a drink containing alcohol?: Never Total Score: 0 REKHA-7 AMB Questionnaire REKHA-7 Date REKHA - 7 assessed: 09/21/24 Feeling nervous, anxious, or on edge: 0 = Not at all Not being able to stop or control worryin = Not at all Worrying too much about different things: 0 = Not at all Trouble relaxin = Not at all Being so restless that it is hard to sit still: 0 = Not at all Becoming easily annoyed or irritable: 0 = Not at all Feeling afraid as if something awful might happen: 0 = Not at all Total REKHA-7 score (0-4 normal; 5-9 mild; 10-14 moderate; 15-21 severe): 0 Source: Developed by Drs. En Noe, Hali Smith, Kirk Figueroa and colleagues, with an educational fabrice from [employer] Review of Systems Const Denies body aches, Denies chills, Denies fever(s), Denies headache(s) and Denies poor appetite Eyes Reports no additional complaints ENT Denies dizziness and Denies headache(s) Card Details: Chest tightness Denies chest pain, Denies syncope, Denies edema, Denies irregular heart rhythm, Denies lightheadedness, Reports dyspnea and Reports dyspnea on exertion Resp Denies cough, Reports dyspnea and Reports dyspnea on exertion GI Denies constipation, Denies diarrhea, Denies nausea and Denies vomiting Reports no additional complaints Musc Reports no additional complaints and Denies abnormal gait Skin/Breast Reports system reviewed and no additional complaints, except as documented Neuro Denies abnormal gait, Denies dizziness, Denies syncope and Denies headache(s) Psych Reports no additional complaints Physical exam (Primary Care) Vital Signs: Last Vital Signs Pulse 84 09/21/24 08:28 BP 126/82 09/21/24 08:28 Pulse Ox 99 09/21/24 08:28 Oxygen Delivery Method Room Air 09/21/24 08:28 BMI result Body Mass Index 28.6 Tobacco/Smoking Status: Tobacco use Status Tobacco use date assessed 09/21/24 09/21/24 08:30 Patient Tobacco Use Status Never used Tobacco 09/21/24 08:30 e-Cigarette/Vaping Use Never Used 09/21/24 08:30 PHQ-9: PHQ-9 Score PHQ-9: Total score 0 09/21/24 08:55 Depression Screening Interpretation: Negative Thrive Assessment: Date of Thrive Assessment Date Thrive assessed 09/21/24 09/21/24 08:30 Currently or been in a relationship where the following occur: No concerns reported Const General: cooperative, healthy appearing, comfortable and no acute distress Orientation/consciousness: patient oriented x3 HENMT Head: Yes normocephalic Ears: hearing grossly normal bilaterally General nose exam: Normal external nose present Eyes General: appearance normal, both eyes and all related structures Conjunctivae: conjunctivae normal Neck Neck: Yes full ROM and Yes no lymphadenopathy Resp Effort & Inspection: normal respiratory effort Auscultation: clear to auscultation bilaterally, no crackles, no rales, no rhonchi and no wheezes Cardio Rate: regular rate Rhythm: regular rhythm Skin General skin exam: no rashes or lesions noted Neuro General: patient oriented x3 Gait exam (Neuro): Normal gait present Extrem General: Yes normal to inspection, Yes full ROM and No edema Psych Affect: normal affect Attitude: cooperative Insight: Good insight present (Psych) Judgement: Good judgement present (Psych) Coding Level of Care Code Est Pt Level 4 (56141) Diagnoses Hypertension I10 Overweight (BMI 25.0-29.9) E66.3 Asthma J45.909 Chest tightness R07.89 Assessment & Plan Assessment & Plan (1) Hypertension: Code(s): I10 - Essential (primary) hypertension Category: Medical Plan: Continue on current blood pressure medication. Avoid salt intake and encourage healthy diet and regular exercise. Patient has not been taking her lisinopril but advised to resume taking it and monitor blood pressure at home. (2) Overweight (BMI 25.0-29.9): Code(s): E66.3 - Overweight Category: Medical Plan: Healthy diet and regular exercise is encouraged. (3) Asthma: Code(s): J45.909 - Unspecified asthma, uncomplicated Category: Medical Plan: Asthma is not well controlled on her present medications and she was given inhaled corticosteroid at her last visit in December but has not been taking his medication. Recent prescription to pharmacy and advised to start on the inhaled corticosteroid as this may be responsible or at least contributing to her chest tightness and shortness of breath. She has not tried using her albuterol inhaler as of yet for the chest tightness. Advised patient to try using albuterol inhaler 2 resolves symptoms and start taking inhaled corticosteroid and follow up in 6 weeks. (4) Chest tightness: Code(s): R07.89 - Other chest pain Category: Medical Plan: Patient complaining of chest tightness likely related to her uncontrolled asthma. However given the chest tightness order for cardiac stress test for further evaluation. Workup in the ED was negative for underlying cardiac etiology which was reassuring. Advised patient to begin using albuterol inhaler as needed as well as start inhaled corticosteroid and follow up in 6 weeks. Reviewed with patient red flag symptoms and when to present for re-evaluation. Plan This note was constructed using voice recognition software. While every effort has been made to ensure accuracy and mammalogy teacher, still areas may have been included sometimes these areas may affect the content or meeting of the given symptoms. Total time spent caring for the patient today was 20 minutes. This includes time spent before the visit reviewing the chart, time spent during the visit, and time spent after the visit and documentation. Orders: Orders CA stress test Today R07.89 - Other chest pain Medications: Refilled albuterol sulfate 90 mcg/actuation (Ventolin HFA) 2 puffs inhalation Q6H PRN 8.5 grams 3RF shortness of breath or wheezing J45.909 - Unspecified asthma, uncomplicated beclomethasone dipropionate 80 mcg/actuation (Qvar RediHaler) administer with spacer 1 inh inhalation Q12H 10.6 grams 3RF J45.909 - Unspecified asthma, uncomplicated
--- NOTE | 2024-09-21 08:28 | MHC.PC.OV ---
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 by: Self / Same As Patient Allergies No Known Allergies [No Known Allergies*] Allergy (Unknown, Verified 09/21/24 08:29) Tobacco use date assessed: 09/21/24 Dental Screening Dental Screen Date: 09/21/24 Did you have a dental visit in the last 12 months?: Yes Did you have a dental problem in the last 6 months where you did not have access to dental care?: No Was dental information given to patient?: Patient has dentist [facility] Medical History Physical exam (~07/25/21) Fungal dermatitis Intermittent asthma Fibroid COVID-19 virus infection Preeclampsia Asthma Surgical History H/O: hysterectomy History of tubal ligation History of section Family History Mother No problems noted. Father No problems noted. Social History Housing: Apartment Alcohol intake: never Patient Tobacco Use Status: Never used Tobacco e-Cigarette/Vaping Use: Never Used Second Hand Smoke Exposure: No service: No Current occupational status: employed Current occupational exposures/hazards: No Cognitive needs: No Hearing needs: No Vision needs: Yes (glasses) Questionnaire PHQ-9 Over the last 2 weeks, how often have you been bothered by any of the following problems? 1. Little interest or pleasure in doing things: not at all 2. Feeling down, depressed, or hopeless: not at all 3. Trouble falling or staying asleep, or sleeping too much: not at all 4. Feeling tired or having little energy: not at all 5. Poor appetite or overeating: not at all 6. Feeling bad about yourself - or that you are a failure or have let yourself or your family down: not at all 7. Trouble concentrating on things, such as reading the newspaper or watching television: not at all 8. Moving or speaking so slowly that other people could have noticed. Or the opposite - being so fidgety or restless that you have been moving around a lot more than usual: not at all 9. Thoughts that you would be better off or of hurting yourself in some way: not at all Total score: 0 Depression Screening Interpretation: Negative Depression Screening Done: Yes Source: Developed by Drs. En Noe, Hali Smith, Kirk Figueroa and colleagues, with an educational fabrice from [employer]. Thrive Questionnaire Date Thrive assessed: 09/21/24 I am a: Patient What is your living situation today?: I have a steady place to live Within the past 12 months, did the food you bought not last and you didn't have the money to get more?: Never true Within the past 12 months, did you worry whether your food would run out before you got money to buy more?: Never true Do you have trouble paying for medicines?: No Do you have trouble getting transportation to medical appointments?: No Do you have trouble paying your heating and electricity bill?: No Do you have trouble taking care of your child, family member or friend?: No Do you have trouble with day-to-day activities such as bathing, preparing meals, shopping, managing finances, etc.?: No Are you currently unemployed and looking for a job?: No Are you interested in more education?: No Please select the resources that you would like help with: None Currently or been in a relationship where the following occur: No concerns reported THRIVE Score: 0 AUDIT C Alcohol Use Questionnaire (AUDIT-C) 1. How often do you have a drink containing alcohol?: Never Total Score: 0 REKHA-7 AMB Questionnaire REKHA-7 Date REKHA - 7 assessed: 09/21/24 Feeling nervous, anxious, or on edge: 0 = Not at all Not being able to stop or control worryin = Not at all Worrying too much about different things: 0 = Not at all Trouble relaxin = Not at all Being so restless that it is hard to sit still: 0 = Not at all Becoming easily annoyed or irritable: 0 = Not at all Feeling afraid as if something awful might happen: 0 = Not at all Total REKHA-7 score (0-4 normal; 5-9 mild; 10-14 moderate; 15-21 severe): 0 Source: Developed by Drs. En Noe, Hali Smith, Kirk Figueroa and colleagues, with an educational fabrice from [employer]. Physical exam (Primary Care) Tobacco/Smoking Status: Tobacco use Status Tobacco use date assessed 01/23/24 01/23/24 09:18 Patient Tobacco Use Status Never used Tobacco 01/23/24 09:18 e-Cigarette/Vaping Use Never Used 01/23/24 09:18 Depression Screening Interpretation: Negative Thrive Assessment: Date of Thrive Assessment Date Thrive assessed 01/23/24 01/23/24 09:18 Currently or been in a relationship where the following occur: No concerns reported Coding
== END 2024-09-21 09:10 | disposition home or self-care (01) ==
PROVIDERS: PCP Internal Medicine
DX: I10 Essential (primary) hypertension (principal); E66.3 Overweight; J45.909 Unspecified asthma, uncomplicated; R07.89 Other chest pain

== ENCOUNTER → 2024-09-21 08:07 | Outpatient (BNVA) | payer OTHER, SELFPAY | PROVIDERS: PCP Internal Medicine | DX: I10 Essential (primary) hypertension (principal); E66.3 Overweight; J45.909 Unspecified asthma, uncomplicated; R07.89 Other chest pain | CPT/HCPCS: 99212 ==

== ENCOUNTER → 2024-09-28 08:05 | Outpatient (BNV) | payer OTHER, SELFPAY | PROVIDERS: PCP Internal Medicine | DX: R07.9 Chest pain, unspecified (principal) | CPT/HCPCS: 93016; 93018 ==

== ENCOUNTER 2024-11-03 09:17 | Outpatient (AMB) | payer OTHER, SELFPAY ==
--- NOTE | 2024-11-03 09:21 | MHC.PC.OV ---
Vital Signs 11/03/24 09:23 Height 4 ft 1 in Weight 141 lb BMI 41.3 BP 132/72 Blood Pressure Location Lt brachial Position Sitting Pulse 86 Pulse Source Pulse Oximeter Temp 96.9 F Temp Source Temporal Artery Scan Pulse Oximetry (%) 99 Oxygen Delivery Method Room Air Intake Visit Reasons: f/u asthma Intake Note: Patient is here to follow up on Asthma. 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 per policy Accompanied by: Self / Same As Patient Allergies No Known Allergies [No Known Allergies*] Allergy (Unknown, Verified 11/03/24 09:26) Medication List - Last Reconciled 11/03/24 by Shannan Savage PA-C albuterol sulfate 90 mcg/actuation (Ventolin HFA) 2 puffs inhalation Q6H PRN cyclobenzaprine 10 mg PO TID PRN fluticasone propionate 44 mcg/actuation 1 puff inhalation BID ibuprofen 600 mg PO Q6H PRN lidocaine 5% 1 patch topical DAILY lisinopril 20 mg PO DAILY Tobacco use date assessed: 11/03/24 Dental Screening Dental Screen Date: 11/03/24 Did you have a dental visit in the last 12 months?: Yes Did you have a dental problem in the last 6 months where you did not have access to dental care?: No Was dental information given to patient?: Patient has dentist HPI f/u asthma HPI Details 34-year-old female with past medical history of hypertension and asthma last seen 08/2024 coming in for follow up on asthma.? At her last visit she was started on inhaled corticosteroid. still having a lot of chest tightness was unable to get the ICS - PA submitted. albuterol twice daily and has been helping with the chest tightness. Presenting with asthma and hypertension. She experiences persistent chest tightness and shortness of breath likely due to asthma as confirmed by normal cardiac stress tests and EKG. Insurance issues have delayed access to a steroid inhaler, though she uses an albuterol inhaler twice a day. The discontinuation of lisinopril for hypertension resulted in decreased chest discomfort, suggesting a correlation. Blood pressure control is currently adequate with a reading of 132/72. [facility] Medical History Physical exam (~07/25/21) Fungal dermatitis Intermittent asthma Fibroid COVID-19 virus infection Preeclampsia Asthma Surgical History H/O: hysterectomy History of tubal ligation History of section Family History Mother No problems noted. Father No problems noted. Social History Housing: Apartment Alcohol intake: never Patient Tobacco Use Status: Never used Tobacco e-Cigarette/Vaping Use: Never Used Second Hand Smoke Exposure: No service: No Current occupational status: employed Current occupational exposures/hazards: No Cognitive needs: No Hearing needs: No Vision needs: Yes (glasses) Questionnaire Thrive Questionnaire Date Thrive assessed: 11/03/24 I am a: Patient What is your living situation today?: I have a steady place to live Within the past 12 months, did the food you bought not last and you didn't have the money to get more?: Never true Within the past 12 months, did you worry whether your food would run out before you got money to buy more?: Never true Do you have trouble paying for medicines?: No Do you have trouble getting transportation to medical appointments?: No Do you have trouble paying your heating and electricity bill?: No Do you have trouble taking care of your child, family member or friend?: No Do you have trouble with day-to-day activities such as bathing, preparing meals, shopping, managing finances, etc.?: No Are you currently unemployed and looking for a job?: No Are you interested in more education?: No Please select the resources that you would like help with: None Currently or been in a relationship where the following occur: No concerns reported THRIVE Score: 0 REKHA-7 AMB Questionnaire REKHA-7 Date REKHA - 7 assessed: 11/03/24 Feeling nervous, anxious, or on edge: 0 = Not at all Not being able to stop or control worryin = Not at all Worrying too much about different things: 0 = Not at all Trouble relaxin = Not at all Being so restless that it is hard to sit still: 0 = Not at all Becoming easily annoyed or irritable: 0 = Not at all Feeling afraid as if something awful might happen: 0 = Not at all Total REKHA-7 score (0-4 normal; 5-9 mild; 10-14 moderate; 15-21 severe): 0 Source: Developed by Drs. En Noe, Hali Smith, Kirk Figueroa and colleagues, with an educational fabrice from [employer]. Review of Systems Const Denies body aches, Denies chills, Denies fever(s), Denies headache(s) and Denies poor appetite Eyes Reports no additional complaints ENT Denies dizziness and Denies headache(s) Card Denies chest pain, Denies syncope, Denies edema, Denies irregular heart rhythm, Denies lightheadedness and Denies dyspnea Resp Denies cough and Denies dyspnea GI Denies abdominal pain, Denies constipation, Denies diarrhea, Denies nausea and Denies vomiting Reports no additional complaints Musc Reports no additional complaints and Denies abnormal gait Skin/Breast Reports system reviewed and no additional complaints, except as documented Neuro Denies abnormal gait, Denies dizziness, Denies syncope and Denies headache(s) Psych Reports no additional complaints Physical exam (Primary Care) Vital Signs: Last Vital Signs Temp 96.9 F 11/03/24 09:23 Pulse 86 11/03/24 09:23 BP 132/72 11/03/24 09:23 Pulse Ox 99 11/03/24 09:23 Oxygen Delivery Method Room Air 11/03/24 09:23 BMI result Body Mass Index 41.3 Tobacco/Smoking Status: Tobacco use Status Tobacco use date assessed 11/03/24 11/03/24 09:24 Patient Tobacco Use Status Never used Tobacco 11/03/24 09:24 e-Cigarette/Vaping Use Never Used 11/03/24 09:24 Thrive Assessment: Date of Thrive Assessment Date Thrive assessed 11/03/24 11/03/24 09:24 Currently or been in a relationship where the following occur: No concerns reported Const General: cooperative, healthy appearing, comfortable and no acute distress Orientation/consciousness: patient oriented x3 HENMT Head: Yes normocephalic Ears: hearing grossly normal bilaterally General nose exam: Normal external nose present Eyes General: appearance normal, both eyes and all related structures Conjunctivae: conjunctivae normal Neck Neck: Yes full ROM and Yes no lymphadenopathy Resp Effort & Inspection: normal respiratory effort Auscultation: clear to auscultation bilaterally, no crackles, no rales, no rhonchi and no wheezes Cardio Rate: regular rate Rhythm: regular rhythm Skin General skin exam: no rashes or lesions noted Neuro General: patient oriented x3 Gait exam (Neuro): Normal gait present Extrem General: Yes normal to inspection, Yes full ROM and No edema Psych Affect: normal affect Attitude: cooperative Insight: Good insight present (Psych) Judgement: Good judgement present (Psych) Coding Level of Care Code Est Pt Level 3 (68639) Diagnoses Hypertension I10 Overweight (BMI 25.0-29.9) E66.3 Asthma J45.909 Assessment & Plan Assessment & Plan (1) Hypertension: Code(s): I10 - Essential (primary) hypertension Category: Medical Plan: Patient has been without her lisinopril for 1 week now with an improvement in her shortness of breath. Plan to discontinue lisinopril at this time advised patient to monitor blood pressures at home and bring log to next appointment in 6 weeks. If blood pressure is persistently over 140/90 to reach out to the office. Avoid salt intake and encourage healthy diet and regular exercise. (2) Overweight (BMI 25.0-29.9): Code(s): E66.3 - Overweight Category: Medical Plan: Healthy diet and regular exercise is encouraged. (3) Asthma: Code(s): J45.909 - Unspecified asthma, uncomplicated Category: Medical Plan: I will address the ongoing insurance authorization issue for the steroid inhaler for asthma management. Meanwhile, the patient will continue using albuterol as needed. Steroid inhaler we will be sent to the pharmacy today advised patient to use twice daily for management of asthma. Plan This note was constructed using voice recognition software. While every effort has been made to ensure accuracy and preventive medicine officer, still areas may have been included sometimes these areas may affect the content or meeting of the given symptoms. Total time spent caring for the patient today was 20 minutes. This includes time spent before the visit reviewing the chart, time spent during the visit, and time spent after the visit and documentation. Patient was informed and verbally consented to the use of an ambient scribe for clinic note documentation during this visit. Medications: On Hold lisinopril Hold Comment: Doctor's Order 20 mg PO DAILY 90 tabs 1RF I10 - Essential (primary) hypertension
[2024-11-03 09:23] VITALS: BP 132/72; PULSE 86; TEMP 36.1; O2SAT 99; BMI 41.3
== END 2024-11-03 09:44 | disposition home or self-care (01) ==
LOC: HO.HMCH 09:18
PROVIDERS: PCP Internal Medicine
DX: I10 Essential (primary) hypertension (principal); E66.3 Overweight; J45.909 Unspecified asthma, uncomplicated

== ENCOUNTER → 2024-11-03 09:17 | Outpatient (BNVA) | payer OTHER, SELFPAY | PROVIDERS: PCP Internal Medicine | DX: I10 Essential (primary) hypertension (principal); E66.3 Overweight; J45.909 Unspecified asthma, uncomplicated | CPT/HCPCS: 99212 ==

== ENCOUNTER 2025-01-01 13:52 | Outpatient (AMB) | payer OTHER, SELFPAY ==
--- NOTE | 2025-01-01 13:55 | A.OFFPC_ITS ---
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 Accompanied by: Self / Same As Patient Allergies No Known Allergies [No Known Allergies*] Allergy (Unknown, Verified 01/01/25 13:56) Medication List - Last Reconciled 01/01/25 by Abigail Nicholson MD albuterol sulfate 90 mcg/actuation (Ventolin HFA) 2 puffs inhalation Q6H PRN fluticasone propionate 44 mcg/actuation 1 puff inhalation BID Tobacco use date assessed: 11/03/24 Dental Screening Dental Screen Date: 11/03/24 [facility] Medical History Physical exam (~07/25/21) Fungal dermatitis Intermittent asthma Fibroid COVID-19 virus infection Preeclampsia Asthma Surgical History H/O: hysterectomy History of tubal ligation History of section Family History Mother No problems noted. Father No problems noted. Social History Housing: Apartment Alcohol intake: never Patient Tobacco Use Status: Never used Tobacco e-Cigarette/Vaping Use: Never Used Second Hand Smoke Exposure: No service: No Current occupational status: employed Current occupational exposures/hazards: No Cognitive needs: No Hearing needs: No Vision needs: Yes (glasses) Questionnaire PHQ-9 Over the last 2 weeks, how often have you been bothered by any of the following problems? 1. Little interest or pleasure in doing things: not at all 2. Feeling down, depressed, or hopeless: not at all 3. Trouble falling or staying asleep, or sleeping too much: not at all 4. Feeling tired or having little energy: not at all 5. Poor appetite or overeating: not at all 6. Feeling bad about yourself - or that you are a failure or have let yourself or your family down: not at all 7. Trouble concentrating on things, such as reading the newspaper or watching television: not at all 8. Moving or speaking so slowly that other people could have noticed. Or the opp osite - being so fidgety or restless that you have been moving around a lot more than usual: not at all 9. Thoughts that you would be better off or of hurting yourself in some way: not at all Total score: 0 Depression Screening Interpretation: Negative Depression Screening Done: Yes 54007 - PHQ-9 Billing: Yes Source: Developed by Drs. En Noe, Hali Smith, Kirk Figueroa and colleagues, with an educational fabrice from [employer]. Thrive Questionnaire Date Thrive assessed: 01/01/25 I am a: Patient What is your living situation today?: I have a steady place to live Within the past 12 months, did the food you bought not last and you didn't have the money to get more?: Never true Within the past 12 months, did you worry whether your food would run out before you got money to buy more?: Never true Do you have trouble paying for medicines?: No Do you have trouble getting transportation to medical appointments?: No Do you have trouble paying your heating and electricity bill?: No Do you have trouble taking care of your child, family member or friend?: No Do you have trouble with day-to-day activities such as bathing, preparing meals, shopping, managing finances, etc.?: No Are you currently unemployed and looking for a job?: No Are you interested in more education?: No Please select the resources that you would like help with: None Currently or been in a relationship where the following occur: I choose not to answer THRIVE Score: 0 AUDIT C Alcohol Use Questionnaire (AUDIT-C) 1. How often do you have a drink containing alcohol?: Never 3. How often do you have six or more drinks on one occasion?: Never Total Score: 0 REKHA-7 AMB Questionnaire REKHA-7 Date REKHA - 7 assessed: 01/01/25 Feeling nervous, anxious, or on edge: 0 = Not at all Not being able to stop or control worryin = Not at all Worrying too much about different things: 0 = Not at all Trouble relaxin = Not at all Being so restless that it is hard to sit still: 0 = Not at all Becoming easily annoyed or irritable: 0 = Not at all Feeling afraid as if something awful might happen: 0 = Not at all Total REKHA-7 score (0-4 normal; 5-9 mild; 10-14 moderate; 15-21 severe): 0 Source: Developed by Drs. En Noe, Hali Smith, Kirk iniguez nd colleagues, with an educational fabrice from [employer]. REKHA-7 Assessment Billing REKHA-7 Assessment Tool: REKHA-7 Assessment 86874 Physical exam (Primary Care) Vital Signs: Last Vital Signs Temp 96.9 F 01/01/25 13:59 Pulse 72 01/01/25 13:59 BP 132/84 01/01/25 13:59 Pulse Ox 100 01/01/25 13:59 BMI result Body Mass Index 28.4 Tobacco/Smoking Status: Tobacco use Status Tobacco use date assessed 11/03/24 01/01/25 14:00 Patient Tobacco Use Status Never used Tobacco 01/01/25 14:00 e-Cigarette/Vaping Use Never Used 01/01/25 14:00 PHQ-9: PHQ-9 Score PHQ-9: Total score 0 01/01/25 14:36 Depression Screening Interpretation: Negative Thrive Assessment: Date of Thrive Assessment Date Thrive assessed 01/01/25 01/01/25 14:00 Currently or been in a relationship where the following occur: I choose not to answer Const General: alert; No acute distress Eyes Conjunctivae: conjunctivae normal Resp Auscultation: clear to auscultation bilaterally Cardio Rate: regular rate Rhythm: regular rhythm GI Inspection: Yes normal to inspection Extrem General: Yes normal to inspection and No edema Coding Level of Care Code Est Pt Level 4 (43723) Diagnoses Overweight (BMI 25.0-29.9) E66.3 Hypertension I10 Asthma J45.909 Additional Codes REKHA-7 Assessment Billing - REKHA-7 Assessment Tool: REKHA-7 Assessment 02169 ([id number]) PHQ-9 - 82227 - PHQ-9 Billing: Yes ([id number]) Assessment & Plan Assessment & Plan (1) Overweight (BMI 25.0-29.9): Code(s): E66.3 - Overweight Category: Medical Plan: Diet and exercise (2) Hypertension: Code(s): I10 - Essential (primary) hypertension Category: Medical Plan: BP controlled with out med. (3) Asthma: Code(s): J45.909 - Unspecified asthma, uncomplicated Category: Medical Plan: Patient is on albuterol inhaler and script for asmanex sent in Plan History of Present Illness The patient is a 34-year-old female presenting with breathing difficulties primarily due to asthma. This issue emerged over a week ago, for which she uses Ventolin as a rescue inhaler approximately once a day. Insurance coverage issues have posed challenges in maintaining the use of Flovent, a regular daily controller, previously utilized by the patient. Her general medical history in cludes hypertension, now not under treatment with lisinopril. Review of the patient's last blood work showed no concerning findings except for vitamin D deficiency. Current symptoms are limited to her asthma, with no additional complaints such as cough or sore throat. The patient?s hypertension and asthma have been relatively stable, though management changes regarding medication are required. Health Maintenance - Discussion on need for vitamin D supplementation due to vitamin D deficiency noted in previous lab results. - Recommendations for sun exposure during peak vitamin D production times as a natural source. - Encouragement of pneumonia vaccination in future visits due to history of asthma. Social History - No specific details regarding social determinants of health were discussed in the conversation. Review of Systems - Respiratory: Reports shortness of breath. - General: Denies cough and sore throat. - Allergies: Denies symptoms such as stuffiness or sneezing. - Sleep: Reports sleeping well. Physical Exam - Respiratory- Lungs were auscultated, no abnormal sounds noted. Results - Labs: Blood work in April 2024 showed no anemia, electrolytes stable, renal function adequate. - Tests: Cholesterol levels were noted as satisfactory. - Deficiency noted in vitamin D. Plan The patient?s asthma management now includes the introduction of Asmanex after discontinuation of Flovent due to insurance issues, with instructions on daily usage and mouth rinsing. Ventolin continues as a rescue inhaler. Vitamin D supplementation is advised, and lifestyle modifications involving sun exposure are recommended to manage the vitamin D deficiency. Pneumonia vaccination is proposed for future visits considering her asthma. The patient is counseled on tracking medication coverage through the office portal and is advised to schedule a complete physical exam at the earliest opportunity. Patient was informed and verbally consented to the use of an ambient scribe for clinic note documentation during this visit. Discussion Notes I discussed with the patient the plan to manage her asthma with Asmanex due to her insurance not covering Flovent. I explained the importance of using Asmanex daily and the necessity of rinsing after use to avoid side effects. The patient was informed on the continued need for Ventolin for acute episodes and strongly advised to maintain communication regarding medication coverage. Additionally, the necessity of vitamin D supplementation was explained, along with the benefits of pneumonia vaccination considering her asthma. All benefits and potential risks were discussed, and all questions were addressed to the patient's satisfaction. Patient Instructions - Use Asmanex daily as prescribed for asthma. - Rinse mouth after using Asmanex. - Use Ventolin rescue inhaler as needed for shortness of breath. - Obtain vitamin D supplements and seek sun exposure as discussed. - Consider getting a pneumonia vaccination at your next appointment. - Use online portal to report any issues with medication coverage or asthma control. - Schedule a complete physical examination. Medications: New mometasone (Asmanex Twisthaler) 1 inh inhalation QPM 1 ea 0RF J45.909 - Unspecified asthma, uncomplicated Discontinued fluticasone propionate 44 mcg/actuation administer with spacer Discontinued Reason: Insurance Denied 1 puff inhalation BID 10.6 grams 1RF
[2025-01-01 13:59] VITALS: BP 132/84; PULSE 72; TEMP 36.1; O2SAT 100; BMI 28.4
== END 2025-01-01 14:47 | disposition home or self-care (01) ==
LOC: HO.HMCH 13:53
PROVIDERS: PCP Internal Medicine; Visit Provider Internal Medicine
DX: E66.3 Overweight (principal); I10 Essential (primary) hypertension; J45.909 Unspecified asthma, uncomplicated

== ENCOUNTER → 2025-01-01 13:52 | Outpatient (BNVA) | payer OTHER, SELFPAY | PROVIDERS: PCP Internal Medicine; Visit Provider Internal Medicine | DX: J45.909 Unspecified asthma, uncomplicated (principal); E66.3 Overweight; I10 Essential (primary) hypertension; E55.9 Vitamin D deficiency, unspecified; Z68.28 Body mass index [BMI] 28.0-28.9, adult; Z79.899 Other long term (current) drug therapy | CPT/HCPCS: 96127; 99212 ==

== ENCOUNTER 2025-02-04 12:33 | Outpatient (AMB) | payer OTHER, SELFPAY ==
--- NOTE | 2025-02-04 12:35 | MHC.PC.OV ---
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 by: Self / Same As Patient Allergies No Known Allergies [No Known Allergies*] Allergy (Unknown, Verified 02/04/25 12:40) Medication List - Last Reconciled 02/04/25 by Abigail Nicholson MD albuterol sulfate 90 mcg/actuation (Ventolin HFA) 2 puffs inhalation Q6H PRN hydrochlorothiazide 12.5 mg PO DAILY mometasone (Asmanex Twisthaler) 1 inh inhalation QPM Tobacco use date assessed: 02/04/25 Dental Screening Dental Screen Date: 02/04/25 HPI Urvashi Granger 02/03 high bp/ chest pain HPI Details after work yesterday chest tightness, sob, ER PFSH Medical History Physical exam (~07/25/21) Fungal dermatitis Intermittent asthma Fibroid COVID-19 virus infection Preeclampsia Asthma Surgical History H/O: hysterectomy History of tubal ligation History of section Family History Mother No problems noted. Father No problems noted. Social History Housing: Apartment Alcohol intake: never Patient Tobacco Use Status: Never used Tobacco e-Cigarette/Vaping Use: Never Used Second Hand Smoke Exposure: No service: No Current occupational status: employed Current occupational exposures/hazards: No Cognitive needs: No Hearing needs: No Vision needs: Yes (glasses) Questionnaire PHQ-9 Over the last 2 weeks, how often have you been bothered by any of the following problems? 1. Little interest or pleasure in doing things: not at all 2. Feeling down, depressed, or hopeless: not at all 3. Trouble falling or staying asleep, or sleeping too much: not at all 4. Feeling tired or having little energy: not at all 5. Poor appetite or overeating: not at all 6. Feeling bad about yourself - or that you are a failure or have let yourself or your family down: not at all 7. Trouble concentrating on things, such as reading the newspaper or watching television: not at all 8. Moving or speaking so slowly that other people could have noticed. Or the opposite - being so fidgety or restless that you have been moving around a lot more than usual: not at all 9. Thoughts that you would be better off or of hurting yourself in some way: not at all Total score: 0 Depression Screening Interpretation: Negative Depression Screening Done: Yes Source: Developed by Drs. En Noe, Hali Smith, Kirk Figueroa and colleagues, with an educational fabrice from [employer]. Thrive Questionnaire Date Thrive assessed: 01/01/25 I am a: Patient What is your living situation today?: I have a steady place to live Within the past 12 months, did the food you bought not last and you didn't have the money to get more?: Never true Within the past 12 months, did you worry whether your food would run out before you got money to buy more?: Never true Do you have trouble paying for medicines?: No Do you have trouble getting transportation to medical appointments?: No Do you have trouble paying your heating and electricity bill?: No Do you have trouble taking care of your child, family member or friend?: No Do you have trouble with day-to-day activities such as bathing, preparing meals, shopping, managing finances, etc.?: No Are you currently unemployed and looking for a job?: No Are you interested in more education?: No Please select the resources that you would like help with: None Currently or been in a relationship where the following occur: I choose not to answer THRIVE Score: 0 AUDIT C Alcohol Use Questionnaire (AUDIT-C) 1. How often do you have a drink containing alcohol?: Never 3. How often do you have six or more drinks on one occasion?: Never Total Score: 0 REKHA-7 AMB Questionnaire REKHA-7 Date REKHA - 7 assessed: 02/04/25 Feeling nervous, anxious, or on edge: 0 = Not at all Not being able to stop or control worryin = Not at all Worrying too much about different things: 0 = Not at all Trouble relaxin = More than half the days Being so restless that it is hard to sit still: 0 = Not at all Becoming easily annoyed or irritable: 0 = Not at all Feeling afraid as if something awful might happen: 0 = Not at all Total REKHA-7 score (0-4 normal; 5-9 mild; 10-14 moderate; 15-21 severe): 2 Source: Developed by Drs. En Noe, Hali Smith, Kirk Figueroa and colleagues, with an educational fabrice from [employer]. Physical exam (Primary Care) Vital Signs: Last Vital Signs Temp 97.4 F 02/04/25 12:36 Pulse 77 02/04/25 12:36 Resp 18 02/04/25 12:36 BP 142/90 H 02/04/25 12:36 Pulse Ox 100 02/04/25 12:36 Oxygen Delivery Method Room Air 02/04/25 12:36 BMI result Body Mass Index 28.3 Tobacco/Smoking Status: Tobacco use Status Tobacco use date assessed 02/04/25 02/04/25 12:40 Patient Tobacco Use Status Never used Tobacco 02/04/25 12:40 e-Cigarette/Vaping Use Never Used 02/04/25 12:40 PHQ-9: PHQ-9 Score PHQ-9: Total score 0 02/04/25 12:48 Depression Screening Interpretation: Negative Thrive Assessment: Date of Thrive Assessment Date Thrive assessed 01/01/25 02/04/25 12:40 Currently or been in a relationship where the following occur: I choose not to answer Const General: alert; No acute distress Eyes Conjunctivae: conjunctivae normal Resp Auscultation: clear to auscultation bilaterally Cardio Rate: regular rate Rhythm: regular rhythm GI Inspection: Yes normal to inspection Extrem General: Yes normal to inspection and No edema Coding Level of Care Code Est Pt Level 4 (44144) Diagnoses Hypertension I10 Overweight (BMI 25.0-29.9) E66.3 Asthma J45.909 Assessment & Plan Assessment & Plan (1) Hypertension: Code(s): I10 - Essential (primary) hypertension Category: Medical (2) Overweight (BMI 25.0-29.9): Code(s): E66.3 - Overweight Category: Medical (3) Asthma: Code(s): J45.909 - Unspecified asthma, uncomplicated Category: Medical Plan History of Present Illness The patient is a 34-year-old female presenting with concerns about elevated blood pressure and recent episodes of chest pain and shortness of breath. She has a history of asthma, hypertension, and anemia secondary to menorrhagia. The patient reports experiencing chest pain, tightness, and dyspnea, which prompted her to check her blood pressure at home, revealing significantly elevated readings. She attempted to relax but continued to feel anxious, leading her to seek emergency care where no acute findings were noted. The emergency department attributed her symptoms to elevated blood pressure, but no specific cause was identified. The patient was not prescribed any new medications following her emergency visit. Her last blood work, including a complete blood count, was normal, and renal function and cholesterol levels have consistently been within normal limits. The patient has been advised to monitor her blood pressure at home, but not to check it daily to avoid unnecessary anxiety. She is instructed to record her blood pressure readings once or twice a week. Health Maintenance - Advised to reduce salt intake to manage hypertension - Encouraged to maintain adequate hydration to prevent dehydration from diuretic use Social History Review of Systems - Cardiovascular: Reports chest pain and elevated blood pressure. Denies syncope. - Respiratory: Reports dyspnea and chest tightness. Denies cough or wheezing. - Psychological: Reports anxiety and feelings of wanting to cry. Denies depression. Physical Exam - Cardiovascular: Blood pressure measured at 146/90 mmHg Results - Labs: Complete blood count normal as of May 15 - Labs: Renal function and cholesterol levels within normal limits Plan The patient will begin treatment with hydrochlorothiazide, a mild diuretic, to manage hypertension. Due to her young age and potential for , SINCERE inhibitors are not recommended at this time. The patient is advised to reduce salt intake and maintain adequate hydration to prevent dehydration and potential leg cramps associated with diuretic use. She is instructed to monitor her blood pressure at home, recording readings once or twice a week, and to avoid checking it daily to prevent anxiety. A follow-up appointment is scheduled in six weeks to assess the effectiveness of the treatment and make any necessary adjustments. Patient was informed and verbally consented to the use of an ambient scribe for clinic note documentation during this visit. Discussion Notes I discussed with the patient the initiation of hydrochlorothiazide for hypertension management, emphasizing the importance of reducing salt intake and maintaining hydration. We reviewed the potential side effects, including dehydration and leg cramps, and the need to monitor blood pressure at home without causing anxiety. A follow-up in six weeks was arranged to evaluate treatment efficacy. Patient Instructions - Start taking hydrochlorothiazide as prescribed. - Reduce salt intake in your diet. - Drink plenty of water to stay hydrated. - Monitor your blood pressure once or twice a week and record the readings. - Follow up in six weeks for a re-evaluation. Medications: New hydrochlorothiazide 12.5 mg PO DAILY 30 tabs 4RF I10 - Essential (primary) hypertension
[2025-02-04 12:36] VITALS: BP 142/90; PULSE 77; RESP 18; TEMP 36.3; O2SAT 100; BMI 28.3
== END 2025-02-04 12:54 | disposition home or self-care (01) ==
LOC: HO.HMCH 12:33
PROVIDERS: PCP Internal Medicine; Visit Provider Internal Medicine
DX: I10 Essential (primary) hypertension (principal); E66.3 Overweight; J45.909 Unspecified asthma, uncomplicated

== ENCOUNTER → 2025-02-04 12:33 | Outpatient (BNVA) | payer OTHER, SELFPAY | PROVIDERS: PCP Internal Medicine; Visit Provider Internal Medicine | DX: I10 Essential (primary) hypertension (principal); R07.9 Chest pain, unspecified; R06.02 Shortness of breath; E66.3 Overweight; J45.909 Unspecified asthma, uncomplicated; D64.9 Anemia, unspecified; N92.0 Excessive and frequent menstruation with regular cycle; Z68.28 Body mass index [BMI] 28.0-28.9, adult | CPT/HCPCS: 99212 ==